=== PATIENT | female | born 1970 | race Hispanic/Latino ===

== ENCOUNTER 2018-07-06 08:57 | Day surgery (SDC) | payer BC ==
[2018-07-04 10:57] VITALS: BMI 27.2
[2018-07-06] MEDS ORDERED: Propofol 10 mg/ml Inj (20 ML) ONE ×2 (09:59→10:37)
[2018-07-06] MEDS ORDERED: Etomidate 20 mg/10ml Inj IV ONE (10:10)
[2018-07-06] MEDS ORDERED: Sodium Chloride 0.9% 1,000 ML IV SCH (10:45)
[2018-07-06 11:38] VITALS: RESP 16; O2SAT 97
[2018-07-06 15:18] VITALS: BP 111/65; PULSE 64; TEMP 97.7
== END 2018-07-06 13:07 | disposition home or self-care (01) ==
LOC: ENDO 08:57
PROVIDERS: ATTEND Internal Medicine Gastroenterology
DX: K22.10 Ulcer of esophagus without bleeding (principal); K21.0 Gastro-esophageal reflux disease with esophagitis; Z98.84 Bariatric surgery status; D50.9 Iron deficiency anemia, unspecified; M32.9 Systemic lupus erythematosus, unspecified; Z85.3 Personal history of malignant neoplasm of breast; Z85.850 Personal history of malignant neoplasm of thyroid
CPT/HCPCS: 44360; 84703; J2001; J2704; J3010; J7030